=== PATIENT | male | born 1955 | race African-American/Black ===

== ENCOUNTER 2016-06-07 18:17 | Inpatient (IN) | payer MEDICAID ==
[~2016-06-07] VITALS: Ht 182.9 cm; Wt 82.3 kg
[~2016-06-07 18:17] MED LIST: ATROPINE SYRINGE 0.1 MG/ML, 10ML ONE; CALCIUM CHLORIDE 10%, 10ML SYR ONE; EPINEPHRINE SYRINGE 0.1 MG/ML, 10ML ONE; ETOMIDATE 20 MG/10 ML ONE; NALOXONE 0.4 MG/ML, 1ML ONE; PROPOFOL 10 MG/ML, 100ML IV ONE; SUCCINYLCHOLINE 20 MG/ML, 10ML ONE; VECURONIUM 10 MG ONE
[2016-06-07] MEDS ORDERED: CLEVIDIPINE 50 ML IV ONE ×3 (18:34→21:07)
[2016-06-07] MEDS: PROPOFOL 100 ML IV PRN ×2 (18:47→22:32)
[2016-06-07] MEDS ORDERED: MORPHINE SULFATE 4 MG/ML, 1ML ONE (18:49)
[2016-06-07] MEDS ORDERED: CLEVIDIPINE 50 ML IV PRN (18:59)
[2016-06-07] MEDS ORDERED: MORPHINE SULFATE 4 MG/ML, 1ML IVPush PRN (19:00)
[2016-06-07] MEDS ORDERED: NALOXONE 1 MG/ML, 2ML IVPush ONE (19:00)
[2016-06-07] MEDS ORDERED: ETOMIDATE 20 MG/10 ML IV ONE (19:00)
[2016-06-07] MEDS ORDERED: SODIUM CHLORIDE FLUSH 10ML SYR IVF PRN (19:00)
[2016-06-07] MEDS ORDERED: SUCCINYLCHOLINE 20 MG/ML, 10ML IVPush ONE (19:00)
[2016-06-07 19:40] LABS: ASPARTATE AMINO TRANSFERASE 41 U/L (15-37); BLOOD UREA NITROGEN 45 mg/dL (7-18)
[2016-06-07 19:46] LABS: ACETAMINOPHEN < 2 mcg/mL (10-30); IS PT STATUS REG ER OR PRE ER? YES
[2016-06-07] MEDS ORDERED: ONDANSETRON 2MG/ML, 2ML IVP PRN (21:00)
[2016-06-07] MEDS ORDERED: POLYETHYLENE GLYCOL 17 GM PACKET PO PRN (21:00)
[2016-06-07] MEDS ORDERED: BISACODYL 10 MG SUPP PR PRN (21:00)
[2016-06-07] MEDS ORDERED: LABETALOL 5MG/ML, 20ML IV PRN (21:00)
[2016-06-07] MEDS ORDERED: ACETAMINOPHEN 325 MG TABLET PO PRN (21:00)
[2016-06-07] MEDS ORDERED: DOCUSATE 100 MG CAPSULE PO PRN (21:00)
[2016-06-07] MEDS ORDERED: hydrALAzine 20 MG/ML, 1ML IV PRN (21:30)
[2016-06-07] MEDS ORDERED: LABETALOL 20 MG/4 ML IV PRN (21:30)
[2016-06-07] MEDS ORDERED: LABETALOL 5MG/ML, 20ML ONE (22:03)
[2016-06-07] MEDS ORDERED: PHARMACY MAY ADJ FOR RENAL FX MC SCH (22:30)
[2016-06-07] MEDS ORDERED: DEXTROSE 50%, 50ML SYRINGE IVPush PRN (22:30)
[2016-06-07] MEDS ORDERED: LIDOCAINE-MPF 1%, 2ML ENDO PRN (22:30)
[2016-06-07] MEDS ORDERED: GLUCAGON 1 MG IM PRN (22:30)
[2016-06-07] MEDS ORDERED: NITROPRUSSIDE 100 MG in DEXTROSE 5% 246 ML IV PRN (22:30)
[2016-06-07] MEDS: NS + 20MEQ KCL 1,000 ML IV SCH (22:33)
[2016-06-07] MEDS ORDERED: CODE BLUE RESPONSE XX ONE (23:00)
[2016-06-07] MEDS ORDERED: NOREPINEPHRINE 1 MG/ML, 4ML ONE (23:08)
[2016-06-07] MEDS ORDERED: EPINEPHRINE 1 MG/ML, 1ML ONE (23:23)
[2016-06-07] MEDS ORDERED: EPINEPHRINE SYRINGE 0.1 MG/ML, 10ML IVPush ONE (23:30)
[2016-06-08] MEDS ORDERED: SODIUM CHLORIDE 0.9% IV PRN
[2016-06-08] MEDS ORDERED: EPINEPHRINE IV PRN
[2016-06-08] MEDS ORDERED: SODIUM BICARBONATE 1 MEQ/ML, 50ML VIAL IVPush ONE (00:30)
[2016-06-08] MEDS: NOREPINEPHRINE 4 MG in SODIUM CHLORIDE 0.9% 246 ML IV PRN ×5 (01:30→17:32)
[2016-06-08 01:42] VITALS: BP 209/87
[2016-06-08 03:06] LABS: ABG COLLECTION SITE ARTERIAL LINE
[2016-06-08] MEDS: NS + 20MEQ KCL 1,000 ML IV SCH ×4 (03:59→21:58)
[2016-06-08 04:00] VITALS: BP 131/92
[2016-06-08 04:43] LABS: ABG COLLECTION SITE ARTERIAL LINE
[2016-06-08 05:08] LABS: IS PT STATUS REG ER OR PRE ER? NO
[2016-06-08 05:15] LABS: ASPARTATE AMINO TRANSFERASE 48 U/L (15-37); BLOOD UREA NITROGEN 55 mg/dL (7-18)
[2016-06-08] MEDS ORDERED: EPINEPHRINE 4 MG in SODIUM CHLORIDE 0.9% 246 ML IV PRN (07:30)
[2016-06-08 11:23] LABS: IS PT STATUS REG ER OR PRE ER? NO
[2016-06-08 15:59] LABS: ABG COLLECTION SITE NOT DOCUMENTED
[2016-06-09] MEDS: NS + 20MEQ KCL 1,000 ML IV SCH ×3 (03:49→18:08)
[2016-06-09 03:52] VITALS: BP 122/71
[2016-06-09 05:03] LABS: ABG COLLECTION SITE ARTERIAL LINE
[2016-06-09 06:10] LABS: HEP B SURF. AB 3.2 mIU/mL (0.0-10.0)
[2016-06-09 06:49] LABS: HEPATITIS C VIRUS ANTIBODY Reactive (Nonreactive)
[2016-06-09] MEDS: NOREPINEPHRINE 4 MG in SODIUM CHLORIDE 0.9% 246 ML IV PRN (12:00)
[2016-06-10] MEDS: NS + 20MEQ KCL 1,000 ML IV SCH ×3 (00:26→12:19)
[2016-06-10] MEDS: NOREPINEPHRINE 4 MG in SODIUM CHLORIDE 0.9% 246 ML IV PRN ×2 (00:27→12:20)
[2016-06-10 04:41] LABS: ABG COLLECTION SITE ARTERIAL LINE
[2016-06-10] MEDS ORDERED: VASOPRESSIN 100 UNIT in SODIUM CHLORIDE 0.9% 495 ML IV PRN (14:00)
[2016-06-10] MEDS ORDERED: SODIUM BICARBONATE 4.2%, 5ML ONE (14:40)
[2016-06-10] MEDS ORDERED: LIDOCAINE 1%, 20ML ONE (14:40)
== END 2016-06-10 14:15 | disposition expired | DRG 64 ==
LOC: EDBD → ED 19:19 → MERGE 19:20 → EDIP 19:20 → CCU 21:31
PROVIDERS: ADMIT Internal Medicine; ATTEND Internal Medicine
PROC: 5A12012 Performance of Cardiac Output, Single, Manual (ICD-10-PCS; principal; 2016-06-07)
PROC: 5A1945Z Respiratory Ventilation, 24-96 Consecutive Hours (ICD-10-PCS; 2016-06-07)
PROC: 0BH17EZ Insertion of Endotracheal Airway into Trachea, Via Natural or Artificial Opening (ICD-10-PCS; 2016-06-07)
PROC: 05HF33Z Insertion of Infusion Device into Left Cephalic Vein, Percutaneous Approach (ICD-10-PCS; 2016-06-08)
PROC: B54NZZA Ultrasonography of Left Upper Extremity Veins, Guidance (ICD-10-PCS; 2016-06-08)
PROC: 03HY32Z Insertion of Monitoring Device into Upper Artery, Percutaneous Approach (ICD-10-PCS; 2016-06-08)
DX: I60.11 Nontraumatic subarachnoid hemorrhage from right middle cerebral artery (principal); J96.00 Acute respiratory failure, unspecified whether with hypoxia or hypercapnia; I21.4 Non-ST elevation (NSTEMI) myocardial infarction; G93.5 Compression of brain; I16.9 Hypertensive crisis, unspecified; Z99.11 Dependence on respirator [ventilator] status; N17.9 Acute kidney failure, unspecified; E87.2 Acidosis; G91.9 Hydrocephalus, unspecified; I10 Essential (primary) hypertension; J44.9 Chronic obstructive pulmonary disease, unspecified; D72.828 Other elevated white blood cell count; E87.6 Hypokalemia; I46.9 Cardiac arrest, cause unspecified
CPT/HCPCS: 31500; 36415; 36600; 70450; 71010; 80047; 80053; 80307; 80329; 82803; 82962; 83605; 83735; 84439; 84443; 84478; 84484; 85025; 85610; 85730; 86706; 86803; 86900; 87040; 87070; 87081; 87205; 87340; 87521; 92950; 93005; 93306; 94002; 94003; 95819; 96365; 96375; J0461; J2310; J2704; J3480; J3490; C9248; G0480; J0330; J0360; J7040; J7050

== ENCOUNTER 2016-06-10 14:16 | Inpatient (IN) | payer OTHER ==
[~2016-06-10] VITALS: Ht 185.4 cm; Wt 83.6 kg
[2016-06-10] MEDS ORDERED: PHENYLEPHRINE 20 MG in SODIUM CHLORIDE 0.9% 248 ML IV PRN (16:00)
[2016-06-10 16:08] LABS: ABG COLLECTION SITE ARTERIAL LINE
[2016-06-10 16:28] LABS: IS PT STATUS REG ER OR PRE ER? NO
[2016-06-10 16:29] LABS: ASPARTATE AMINO TRANSFERASE 115 U/L (15-37); BLOOD UREA NITROGEN 74 mg/dL (7-18)
[2016-06-10] MEDS ORDERED: PLEASE ENTER HEIGHT AND WEIGHT MC SCH (16:30)
[2016-06-10] MEDS ORDERED: SODIUM BICARBONATE 8.4% 150 MEQ in DEXTROSE 5% 1,000 ML IV SCH (16:30)
[2016-06-10] MEDS ORDERED: NOREPINEPHRINE 1 MG/ML, 4ML ONE (16:32)
[2016-06-10] MEDS: NOREPINEPHRINE 4 MG in SODIUM CHLORIDE 0.9% 246 ML IV PRN ×2 (16:36→20:26)
[2016-06-10] MEDS ORDERED: INSULIN REGULAR 100 UNITS/ML, 3ML VIAL ONE (16:49)
[2016-06-10] MEDS ORDERED: DEXTROSE 50%, 50ML VIAL ONE (16:49)
[2016-06-10] MEDS ORDERED: INSULIN REGULAR 100 UNITS/ML, 3ML VIAL IVPush ONE (17:00)
[2016-06-10] MEDS ORDERED: DEXTROSE 50%, 50ML SYRINGE IVPush ONE (17:00)
[2016-06-10] MEDS ORDERED: POTASSIUM CHLORIDE PMX 100 ML IV PRN (17:30)
[2016-06-10] MEDS ORDERED: CALCIUM CHLORIDE 13.6 MEQ in SODIUM CHLORIDE 0.9% 100 ML IV PRN (17:30)
[2016-06-10] MEDS ORDERED: LEVOTHYROXINE SODIUM 200 MCG in SODIUM CHLORIDE 0.9% 500 ML IV SCH (17:30)
[2016-06-10] MEDS ORDERED: REGULAR INSULIN 62.5 UNITS in SODIUM CHLORIDE 0.9% 249.375 ML IV PRN (17:30)
[2016-06-10] MEDS ORDERED: SODIUM CHLORIDE 0.9% 1,000ML IVBOLUS ONE (17:30)
[2016-06-10] MEDS ORDERED: DEXTROSE 5% IV SCH (17:30)
[2016-06-10] MEDS ORDERED: METHYLPREDNISOLONE SOD SUCC IV SCH (17:30)
[2016-06-10] MEDS ORDERED: POTASSIUM CHLORIDE 40 MEQ in SODIUM CHLORIDE 0.9% 100 ML IV PRN (17:30)
[2016-06-10] MEDS ORDERED: MAGNESIUM SULFATE PMX 4GM/100M 100 ML IVPB PRN (18:00)
[2016-06-10] MEDS ORDERED: DEXTROSE 5% 1,000 ML IV SCH (18:00)
[2016-06-10] MEDS ORDERED: PIPERACILLIN/TAZO/PMX 3.375GM 50 ML IV SCH (18:00)
[2016-06-10] MEDS ORDERED: MAGNESIUM SULFATE PMX 2GM/50ML 50 ML IVPB PRN (18:00)
[2016-06-10] MEDS ORDERED: VASOPRESSIN 100 UNIT in SODIUM CHLORIDE 0.9% 495 ML IV PRN (18:00)
[2016-06-10] MEDS: ARTIFICIAL TEARS OPHTH SOLN 15ML OP SCH ×3 (18:49→22:19)
[2016-06-10] MEDS ORDERED: VANCOMYCIN 1,600 MG in SODIUM CHLORIDE 0.9% 250 ML IV ONE (20:00)
[2016-06-10 20:17] LABS: ABG COLLECTION SITE ARTERIAL LINE
[2016-06-10] MEDS: ALBUTEROL SULFATE 2.5 MG/3 ML NPPB SCH ×2 (20:20→23:17)
[2016-06-10 20:26] LABS: BLOOD UREA NITROGEN 69 mg/dL (7-18)
[2016-06-10 20:29] LABS: ASPARTATE AMINO TRANSFERASE 174 U/L (15-37)
[2016-06-10 20:41] LABS: IS PT STATUS REG ER OR PRE ER? NO
[2016-06-10] MEDS ORDERED: SODIUM BICARBONATE 1 MEQ/ML, 50ML VIAL IVPush STA ×2 (20:43→22:08)
[2016-06-10 20:45] LABS: DIFF TOTAL CELLS COUNTED 100 CELL DIFF
[2016-06-10 20:52] LABS: ANISOCYTOSIS 1+; OVALOCYTES 1+; POLYCHROMASIA 1+; VERIFY COUNTS? YES
[2016-06-10 20:53] LABS: LARGE PLATELETS 1+
[2016-06-11] MEDS: ARTIFICIAL TEARS OPHTH SOLN 15ML OP SCH ×7 (00:26→14:10)
[2016-06-11] MEDS: NOREPINEPHRINE 4 MG in SODIUM CHLORIDE 0.9% 246 ML IV PRN (00:27)
[2016-06-11] MEDS ORDERED: SODIUM BICARBONATE 1 MEQ/ML, 50ML VIAL IVPush ONE (00:45)
[2016-06-11] MEDS ORDERED: FUROSEMIDE 40 MG/4 ML IV ONE (01:00)
[2016-06-11] MEDS: ALBUTEROL SULFATE 2.5 MG/3 ML NPPB SCH ×3 (01:56→10:00)
[2016-06-11] MEDS: PIPERACILLIN/TAZO/PMX 2.25GM 50 ML IV SCH ×2 (02:00→10:10)
[2016-06-11 03:58] LABS: ABG COLLECTION SITE ARTERIAL LINE
[2016-06-11] MEDS ORDERED: PIPERACILLIN/TAZO/PMX 2.25GM 50 ML IV SCH (04:00)
[2016-06-11 04:13] LABS: BLOOD UREA NITROGEN 71 mg/dL (7-18)
[2016-06-11 04:26] LABS: DIFF TOTAL CELLS COUNTED 100 CELL DIFF
[2016-06-11 04:31] LABS: ASPARTATE AMINO TRANSFERASE 321 U/L (15-37); VERIFY COUNTS? YES
[2016-06-11 04:32] LABS: ANISOCYTOSIS 1+; IS PT STATUS REG ER OR PRE ER? NO; POLYCHROMASIA 1+
[2016-06-11 04:33] LABS: LARGE PLATELETS 1+
[2016-06-11] MEDS ORDERED: PANTOPRAZOLE 40 MG IV IVPush SCH (07:30)
[2016-06-11 08:10] VITALS: BP 128/81
[2016-06-11 09:56] LABS: BLOOD UREA NITROGEN 73 mg/dL (7-18)
[2016-06-11 10:13] LABS: ASPARTATE AMINO TRANSFERASE 385 U/L (15-37)
[2016-06-11 10:14] LABS: IS PT STATUS REG ER OR PRE ER? NO
[2016-06-11 10:26] LABS: DIFF TOTAL CELLS COUNTED 100 CELL DIFF
[2016-06-11 10:27] LABS: VERIFY COUNTS? YES
[2016-06-11 10:28] LABS: ANISOCYTOSIS 1+
[2016-06-11 10:37] LABS: ABG COLLECTION SITE ARTERIAL LINE
[2016-06-11] MEDS ORDERED: DEXTROSE 5% 1,000 ML IV ONE (14:00)
[2016-06-11 14:11] LABS: ABG COLLECTION SITE ARTERIAL LINE
[2016-06-11 14:26] LABS: ASPARTATE AMINO TRANSFERASE 417 U/L (15-37); BLOOD UREA NITROGEN 74 mg/dL (7-18)
[2016-06-11 14:45] VITALS: BP 110/74
[2016-06-11 14:45] LABS: IS PT STATUS REG ER OR PRE ER? NO
[2016-06-11] MEDS ORDERED: ROCURONIUM 10 MG/ML ONE (14:55)
[2016-06-11 15:09] LABS: DIFF TOTAL CELLS COUNTED 100 CELL DIFF
[2016-06-11 15:15] LABS: ANISOCYTOSIS 1+
[2016-06-11 15:17] LABS: VERIFY COUNTS? YES
[2016-06-11] MEDS ORDERED: SODIUM BICARBONATE 8.4% 150 MEQ in DEXTROSE 5% 1,000 ML IV SCH (16:30)
== END 2016-06-11 18:24 | disposition expired | DRG 951 ==
LOC: CCU 14:16
PROVIDERS: ADMIT Internal Medicine; ATTEND Internal Medicine
DX: Z52.9 Donor of unspecified organ or tissue (principal)
CPT/HCPCS: 36415; 36600; 47000; 71010; 76942; 80051; 80053; 81001; 82040; 82150; 82247; 82248; 82330; 82550; 82553; 82565; 82803; 82947; 82962; 82977; 83036; 83605; 83615; 83690; 83735; 84075; 84100; 84132; 84155; 84450; 84460; 84484; 84520; 85025; 85610; 85730; 87040; 87070; 87077; 87086; 87205; 93005; 94003; 94640; J1940; J2543; J2930; J3370; J7070; J7613; C9113; J2370; J3475; J7030; J7050